=== PATIENT | male | born 1955 | race Asian ===

== ENCOUNTER 2019-03-18 08:56 | Day surgery (SDC) | payer BC ==
[2019-03-18] MEDS ORDERED: Ringers Lactate 1,000 ML IV ONE ×2 (09:37→12:14)
[2019-03-18] MEDS ORDERED: CEFOXITIN/SWI 1gm 1 GM/10 ML SYR ONE (09:41)
[2019-03-18] MEDS ORDERED: PROPOFOL 200 MG/20 ML VIAL IV ONE (10:50)
[2019-03-18] MEDS ORDERED: GLYCOPYRROLATE 0.2 MG/ML SYR ONE (10:51)
[2019-03-18] MEDS ORDERED: ROCURONIUM 50 MG/5 ML VIAL IV ONE (10:52)
[2019-03-18] MEDS ORDERED: ONDANSETRON 4 MG/2 ML VIAL ONE (10:52)
[2019-03-18] MEDS ORDERED: NEOSTIGMINE 1 MG/ML -10 ML VIAL ONE (10:52)
[2019-03-18] MEDS ORDERED: LIDOCAINE 2% MPF 5 ML VIAL ONE (10:52)
[2019-03-18] MEDS ORDERED: FENTANYL CITR 250 MCG/5 ML ONE (10:52)
[2019-03-18] MEDS ORDERED: MIDAZOLAM HCL 2 MG/2 ML INJ ONE (10:53)
--- NOTE | 2019-03-18 11:46 | P.OP ---
Preoperative diagnosis: Cholecystitis with Cholelithiasis Postoperative diagnosis: Cholecystitis with Cholelithiasis Primary procedure: Laparoscopic Cholecystectomy Anesthesia: GETA + Local Estimated blood loss: <10cc Specimen: Gallbladder Findings: Significant Scarring to maribel, anterior, posterior cystic artery Complications: None Transferred to: Recovery Room Condition: Good
[2019-03-18] MEDS ORDERED: BUPIVACA 0.25%/EPI 0.0005% MDV 50 ML VIAL ONE (12:14)
[2019-03-18] MEDS: MEPERIDINE HCL 50 MG/ML AMP ONE ×4 (12:18→12:35)
[2019-03-18] MEDS ORDERED: HYDROCODONE/APAP 5/325 MG TAB ONE (13:17)
--- NOTE | 2019-03-18 15:23 | EKG ---
Test Date: 2019-03-18 Test Time: 09:10:51 Heading Saw Operator: ROB MEASUREMENT RESULTS: Intervals: Rate: 52 MO: 166 QRSD: 90 QT: 420 QTc: 390 [place]: P: 76 MO: 166 QRS: 64 T: 66 INTERPRETIVE STATEMENTS: Sinus bradycardia Low voltage QRS Borderline ECG Compared to ECG 04/02/2009 06:19:53 Low QRS voltage now present Right-axis deviation no longer present T-wave abnormality no longer present Possible ischemia no longer present Electronically Signed On 03-18-19 15:23:11 CDT by Kavon Griffin
--- NOTE | 2019-03-18 22:13 | OP ---
Date of Procedure: 03/18/2019 Surgeon: Carroll Petersen MD, Preoperative Diagnosis: Cholecystitis with cholelithiasis. Postoperative Diagnosis: Cholecystitis with cholelithiasis. Procedure Performed: Laparoscopic cholecystectomy. Anesthesia: General endotracheal plus local with 0.25% Marcaine with epinephrine. Estimated Blood Loss: Less than 10 cc. Specimen: Gallbladder. Findings: Significant scarring to the maribel extending in the area all the way to include the gallbla dder and there was an anterior and posterior cystic artery branches. Complications: None. Disposition: Transferred to recovery room in good condition. Procedure In Detail: Informed consent was obtained. The patient was brought to the operating room, prepped and draped in the usual sterile fashion. After adequate anesthesia was achieved, the infraum bilical area was anesthetized with 0.25% Marcaine, sharply incised, and a 5-mm trocar was introduced in the abdomen without evidence of complication. Insufflation was obtained to 15 mmHg at this time. There was no injury to vital structures upon entering the abdomen upon inspection. Additional troca r site was chosen in the epigastrium, this was similarly anesthetized and sharply incised. A 5-mm tr ocar was introduced in the abdomen without evidence of complication. Additional trocar site was chos en in the right upper quadrant. This was similarly anesthetized, sharply incised. A 5-mm trocar was introduced in the abdomen without evidence of complication. Insufflation was maintained at 15 mmHg. The patient was then positioned head up right-side up position. Ratcheted grasper was used to gras p the patient's gallbladder, placed it towards the patient's right shoulder and dissection continued down the gallbladder to expose the cystic duct and cystic artery. However, the cystic artery had wha t appeared to be an anterior and posterior branch. These were completely skeletonized prior to any c lip application, and the liver was cleared, ensuring the critical view safety was obtained. The ante rior and posterior branches of the cystic artery were both individually doubly ligated on the proxima l side and singly on the distal side, as well as the cystic duct was doubly ligated on the proximal s fior and singly on the distal side. These were then ligated with Endo Osman. The gallbladder was th en removed from the hepatic fossa without evidence of complication. The hepatic fossa required minim al electrocautery to achieve hemostasis, with good hemostasis at the end of the procedure. The gallb ladder was removed with no spillage and placed in an EndoCatch bag and removed through the umbilical trocar. The abdomen was then re-insufflated at this time. The area was inspected. Proper hemostasis was achieved. The abdomen was copiously irrigated multiple times and then suctioned until completel y clear, and then the umbilical trocar was removed. The umbilical trocar site was closed using a Demarco Michele suture passer with 0 Vicryl in an interrupted fashion with good approximation of tissues . The abdomen was then completely desufflated under direct visualization without evidence of complic ation. All trocars were removed. All skin incisions copiously irrigated and closed with a 4-0 Monoc ryl in a running fashion. Dermabond placed over the top. The patient tolerated the procedure well w ithout evidence of complication and transferred to PACU in good condition. All counts were correct a t the end of the case. SHITAL/FOREIGN Voice ID: [id number] Report ID: [id number]
== END 2019-03-18 14:20 | disposition home or self-care (01) ==
LOC: OR 08:56
PROVIDERS: ATTEND Surgery
PROC: 0FT44ZZ Resection of Gallbladder, Percutaneous Endoscopic Approach (ICD-10-PCS; principal; 2019-03-18 10:00)
DX: K80.10 Calculus of gallbladder with chronic cholecystitis without obstruction (principal); D13.1 Benign neoplasm of stomach; J44.9 Chronic obstructive pulmonary disease, unspecified; I25.2 Old myocardial infarction; Z95.5 Presence of coronary angioplasty implant and graft; Z87.891 Personal history of nicotine dependence
CPT/HCPCS: 88304; 93005; J2175; J2250; J2405; J2704; J2710; J3010

== ENCOUNTER 2024-01-28 07:11 | Inpatient (IN) | payer MEDICARE ==
--- OUTSIDE RECORDS SUMMARY | 2024-01-28 07:15 | XMS REPORT | Continuity of Care Document ---
Author Name Unknown Address [address] [facility] [address] [place] [address] [facility] Address [address] [facility] [address] [place] [address] Care Team Providers Care Prison Warden Name Role Phone Bebe Rodriguez Attending Clinician Unavailable Rhonda Bedolla Attending Clinician Payers Payer Name Policy Type Policy Number Effective Date Expirati on Date Source [facility] (MEDICARE REPLACEMENT HMO) [id number] 2022 00:00:00 Problems Condition Name Condition Details Condition Category Status Onset Date Resolution Date Last Treatment Date Treating Clinician Comments Source [place] l fistula [place] fistula Problem [facility] [id number] Vitamin D deficiency Problem [facility] Mixed hyperlipid emia Mixed hyperlipid emia Problem [facility] [id number] Essential (primary) hypertensi on Problem [facility] Social History Social Habit Start Date Stop Date Quantity Comments Source History of Tobacco Use [facility] Sex Assigned At [facility] Smoking Status Start Date Stop Date Source Former Smoker 2023-12-20 00:00:00 2023-12-20 00:00:00 [facility] Medications Ordered Medication Name Filled Medication Name Start Date Stop Date Current Medication? Ordering Clinician Indication Dosage Frequency Signature (SIG) Comments Components Source Losartan Potassium 25 MG Losartan Potassium 25 MG 11-21 00:00: 00 No 1{table t} QD Losartan Potassium 25 MG Rosuvastati n Calcium 5 MG Rosuvastati n Calcium 5 MG 4-0 - 00:00: 00 No 1{table t} QD Rosuvastat in Calcium 5 MG Losartan Potassium 25 MG Losartan Potassium 25 MG 2024-0 - 00:00: 00 No 1{table t} QD Losartan Potassium 25 MG Rosuvastati n Calcium 5 MG Rosuvastati n Calcium 5 MG 4-0 - 00:00: 00 No 1{table t} QD Rosuvastat in Calcium 5 MG Losartan Potassium 25 MG Losartan Potassium 25 MG 4-0 11-21 00:00: 00 No 1{table t} QD Losartan Potassium 25 MG Rosuvastati n Calcium 5 MG Rosuvastati n Calcium 5 MG 4-0 11-21 00:00: 00 No 1{table t} QD Rosuvastat in Calcium 5 MG Losartan Potassium 25 MG Losartan Potassium 25 MG 4-0 11-21 00:00: 00 No 1{table t} QD Losartan Potassium 25 MG Rosuvastati n Calcium 5 MG Rosuvastati n Calcium 5 MG 4-0 11-21 00:00: 00 No 1{table t} QD Rosuvastat in Calcium 5 MG Losartan Potassium 25 MG Losartan Potassium 25 MG 4-0 11-21 00:00: 00 No 1{table t} QD Losartan Potassium 25 MG Rosuvastati n Calcium 5 MG Rosuvastati n Calcium 5 MG 4-0 11-21 00:00: 00 No 1{table t} QD Rosuvastat in Calcium 5 MG Vitamin D3 Vitamin D3 No Vitamin D3 Vitamin C Vitamin C No Vitamin C Vitamin B12 Vitamin B12 No Vi tamin B12 Vitamin C Vitamin C No Vitamin C Rosuvastati n Calcium 5 MG Rosuvastati n Calcium 5 MG No 1{table t} QD Rosuvastat in Calcium 5 MG Vitamin B12 Vitamin B12 No Vi tamin B12 Losartan Potassium 50 MG Losartan Potassium 50 MG No 1{table t} QD Losartan Potassium 50 MG Vitamin D3 Vitamin D3 No Vitamin D3 Vitamin C Vitamin C No Vitamin C Rosuvastati n Calcium 5 MG Rosuvastati n Calcium 5 MG No 1{table t} QD Rosuvastat in Calcium 5 MG Vitamin B12 Vitamin B12 No Vi tamin B12 Losartan Potassium 50 MG Losartan Potassium 50 MG No 1{table t} QD Losartan Potassium 50 MG Vitamin D3 Vitamin D3 No Vitamin D3 Vitamin C Vitamin C No Vitamin C Rosuvastati n Calcium 5 MG Rosuvastati n Calcium 5 MG No 1{table t} QD Rosuvastat in Calcium 5 MG Vitamin B12 Vitamin B12 No Vi tamin B12 Losartan Potassium 50 MG Losartan Potassium 50 MG No 1{table t} QD Losartan Potassium 50 MG Vitamin D3 Vitamin D3 No Vitamin D3 Vitamin D3 Vitamin D3 No Vitamin D3 Vitamin C Vitamin C No Vitamin C Vitamin B12 Vitamin B12 No Vi tamin B12 Vitamin D3 Vitamin D3 No Vitamin D3 Vitamin C Vitamin C No Vitamin C Vitamin B12 Vitamin B12 No Vi tamin B12 Vitamin D3 Vitamin D3 No Vitamin D3 Vitamin C Vitamin C No Vitamin C Vitamin B12 Vitamin B12 No Vi tamin B12 Vitamin D3 Vitamin D3 No Vitamin D3 Vitamin C Vitamin C No Vitamin C Vitamin B12 Vitamin B12 No Vi tamin B12 Immunizations Ordered Immunization Name Filled Immunization Name Date Status Comments Source Arexvy Arexvy Unknown Completed [facility] rit [facility] Prevnar 20 (PCV20) Prevnar 20 (PCV20) Unknown Completed [facility] FluAD FluAD Unknown Completed [facility] Shingrix Shingrix Unknown Completed [facility] Shingrix Shingrix Unknown Completed [facility] Boostrix (Tdap) Boostrix (Tdap) Unknown Completed [facility] Fluzone Fluzone Unknown Completed [facility] Arexvy Arexvy Unknown Completed [facility] Prevnar 20 (PCV20) Prevnar 20 (PCV20) Unknown Completed [facility] FluAD FluAD Unknown Completed [facility] Shingrix Shingrix Unknown Completed [facility] Shingrix Shingrix Unknown Completed [facility] Boostrix (Tdap) Boostrix (Tdap) Unknown Completed [facility] Fluzone Fluzone Unknown Completed [facility] Arexvy Arexvy Unknown Completed [facility] Prevnar 20 (PCV20) Prevnar 20 (PCV20) Unknown Completed [facility] FluAD FluAD Unknown Completed [facility] Shingrix Shingrix Unknown Completed [facility] Shingrix Shingrix Unknown Completed [facility] Boostrix (Tdap) Boostrix (Tdap) Unknown Completed [facility] Fluzone Fluzone Unknown Completed [facility] rit [facility] Arexvy Arexvy Unknown Completed [facility] rit [facility] Prevnar 20 (PCV20) Prevnar 20 (PCV20) Unknown Completed [facility] FluAD FluAD Unknown Completed [facility] Shingrix Shingrix Unknown Completed [facility] Shingrix Shingrix Unknown Completed [facility] Boostrix (Tdap) Boostrix (Tdap) Unknown Completed [facility] Fluzone Fluzone Unknown Completed [facility] rit [facility] Arexvy Arexvy Unknown Completed [facility] Prevnar 20 (PCV20) Prevnar 20 (PCV20) Unknown Completed [facility] FluAD FluAD Unknown Completed [facility] Shingrix Shingrix Unknown Completed [facility] Shingrix Shingrix Unknown Completed [facility] rit [facility] Boostrix (Tdap) Boostrix (Tdap) Unknown Completed [facility] Fluzone Fluzone Unknown Completed [facility] Arexvy Arexvy Unknown Completed [facility] Prevnar 20 (PCV20) Prevnar 20 (PCV20) Unknown Completed [facility] FluAD FluAD Unknown Completed [facility] Shingrix Shingrix Unknown Completed [facility] rit [facility] Shingrix Shingrix Unknown Completed [facility] rit [facility] Boostrix (Tdap) Boostrix (Tdap) Unknown Completed [facility] Fluzone Fluzone Unknown Completed [facility] Arexvy Arexvy Unknown Completed [facility] Prevnar 20 (PCV20) Prevnar 20 (PCV20) Unknown Completed [facility] FluAD FluAD Unknown Completed [facility] Shingrix Shingrix Unknown Completed [facility] Shingrix Shingrix Unknown Completed [facility] Boostrix (Tdap) Boostrix (Tdap) Unknown Completed [facility] Fluzone Fluzone Unknown Completed [facility] Arexvy Arexvy Unknown Completed [facility] Prevnar 20 (PCV20) Prevnar 20 (PCV20) Unknown Completed [facility] FluAD FluAD Unknown Completed [facility] Shingrix Shingrix Unknown Completed [facility] Shingrix Shingrix Unknown Completed [facility] Boostrix (Tdap) Boostrix (Tdap) Unknown Completed [facility] Fluzone Fluzone Unknown Completed [facility] Vital Signs Vital Name Observation Time Observation Value Comments S ource temperature 2023-12-20 15:20:00 97.5 [degF] Com [facility] bmi 2023-12-20 15:20:00 23.23 kg/m2 Comm on [facility] oximetry 2023-12-20 15:20:00 96 % Commo n [facility] respiratory rate 2023-12-20 15:20:00 16 /min [facility] blood pressure systolic 2023-12-20 15:20:00 140 mm[Hg] [facility] blood pressure diastolic 2023-12-20 15:20:00 78 mm[Hg] [facility] height 2023-12-20 15:20:00 62.0 [in_i] Comm on [facility] weight 2023-12-20 15:20:00 127 [lb_av] Comm on [facility] height 2023-12-20 15:20:00 62.0 [in_i] Comm on [facility] weight 2023-12-20 15:20:00 127 [lb_av] Comm on [facility] temperature 2023-12-20 15:20:00 97.5 [degF] Com mon [facility] bmi 2023-12-20 15:20:00 23.23 kg/m2 Comm on [facility] oximetry 2023-12-20 15:20:00 96 % Commo n [facility] respiratory rate 2023-12-20 15:20:00 16 /min [facility] blood pressure systolic 2023-12-20 15:20:00 140 mm[Hg] [facility] blood pressure diastolic 2023-12-20 15:20:00 78 mm[Hg] [facility] height 2023-11-21 13:20:00 62.0 [in_i] Comm on [facility] weight 2023-11-21 13:20:00 127.8 [lb_av] Co mmon [facility] temperature 2023-11-21 13:20:00 97.6 [degF] Com mon [facility] bmi 2023-11-21 13:20:00 23.37 kg/m2 Comm on [facility] oximetry 2023-11-21 13:20:00 97 % Commo [facility] respiratory rate 2023-11-21 13:20:00 16 /min [facility] blood pressure systolic 2023-11-21 13:20:00 146 mm[Hg] [facility] blood pressure diastolic 2023-11-21 13:20:00 78 mm[Hg] [facility] height 2023-10-31 15:20:00 62.0 [in_i] Comm on [facility] weight 2023-10-31 15:20:00 125.4 [lb_av] Co mmon [facility] temperature 2023-10-31 15:20:00 97.5 [degF] Com mon [facility] bmi 2023-10-31 15:20:00 22.93 kg/m2 Comm on [facility] oximetry 2023-10-31 15:20:00 98 % Commo n [facility] respiratory rate 2023-10-31 15:20:00 16 /min [facility] blood pressure systolic 2023-10-31 15:20:00 138 mm[Hg] [facility] blood pressure diastolic 2023-10-31 15:20:00 60 mm[Hg] [facility] height 2023-10-31 15:20:00 62.0 [in_i] Comm on [facility] weight 2023-10-31 15:20:00 125.4 [lb_av] Co mmon [facility] temperature 2023-10-31 15:20:00 97.5 [degF] Com [facility] bmi 2023-10-31 15:20:00 22.93 kg/m2 Comm on [facility] oximetry 2023-10-31 15:20:00 98 % Commo n [facility] respiratory rate 2023-10-31 15:20:00 16 /min [facility] blood pressure systolic 2023-10-31 15:20:00 138 mm[Hg] [facility] blood pressure diastolic 2023-10-31 15:20:00 60 mm[Hg] [facility] Encounters Start Date/Time End Date/Time Encounter Type Admission Type Attending [facility] Care Facility Care Department Encounter ID Source 2023-12-18 10:39:01 Outpatient Bebe Rodriguez STLMLC ST[facility] [id number] [facility] 2023-11-20 13:15:00 Outpatient Bebe Rodriguez STLML[facility] [id number] [facility] 2023-10-31 14:42:01 Outpatient Bebe Rodriguez STLC STLMLC [id number] [facility] 2024-01-25 00:00:00 2024-01-25 00:00:00 (TEL) STLMLC ST[facility]C [id number] [facility] 2023-12-20 00:00:00 2023-12-20 00:00:00 OFFICE VISIT ESTAB PT LEVEL 4 STLMLC STLMLC [id number] [facility] 2023-12-20 00:00:00 2023-12-20 00:00:00 INIT ANNUAL [facility]LLNESS VISIT STLMLC STLMLC [id number] [facility] 2023-11-23 00:00:00 2023-11-23 00:00:00 (TEL) STLMLC STLMLC [id number] [facility] 2023-11-21 00:00:00 2023-11-21 00:00:00 OFFICE VISIT ESTAB PT LEVEL 4 [facility]LMLC STL[facility]C [id number] [facility] 2023-11-16 00:00:00 2023-11-16 00:00:00 (TEL) STLMLC STLMLC [id number] [facility] 2023-10-31 00:00:00 2023-10-31 00:00:00 OFFICE VISIT NEW PT LEVEL 4 [facility]LMLC STLMLC [id number] [facility] 2023-10-31 00:00:00 2023-10-31 00:00:00 WELCOME TO MEDICARE PREV PHY EXAM STLMLC STLMLC [id number] [facility] 2023-10-27 19:30:00 2023-10-27 20:30:00 D2Me Rhonda Bedolla [id number] [facility] 2023-03-18 00:00:00 2023-03-18 00:00:00 Outpatient [facility] [id number] [facility] 2023-03-18 00:00:00 2023-03-18 00:00:00 Outpatient [facility] [id number] [facility] 2022-08-23 00:00:00 2022-08-23 00:00:00 Outpatient [facility] [id number] [facility] Results Test Description Test Time Test Comments Results Result Co mments Source PSA W/REFLEX TO FREE [id number] 00:00:00* Test Item Value Reference Range Interpretation Comme [facility] PROSTATE SPECIFIC AG (test code = 82750-8) 0.66 NG/ML See_Comment [Automated [employer] vi[employer]t] The system which generated this result transmitted reference range: <=4.00 NG/ML. The reference range was not used to interpret this result as normal/abnormal. HEMOGLOBIN [id number] 00:00:00* Test Item Value Reference Range Interpretation Comme [facility] HEMOGLOBIN A1c (test code = 4548-4) 5.8 % See_Comment H [Automated [employer]] The system which generated this result transmitted reference range: 4.2-5.6 %. The reference range was not used to interpret this result as normal/abnormal. VITAMIN [id number] 00:00:00* Test Item Value Reference Range Interpretation Comme [facility] VITAMIN B-12 (test code = 2132-9) 1312 PG/ML See_Comment H [Automated [employer]] The system which generated this result transmitted reference range: 200-950 PG/ML. The reference range was not used to interpret this result as normal/abnormal. HEPATITIS C [id number] 00:00:00* Test Item Value Reference Range Interpretation Comme [facility] HEPATITIS C ANTIBODY (test c ode = 48450-0) NON-REACTIVE NON-REACTIVE VITAMIN D, 25 [id number] 00:00:00* Test Item Value Reference Range Interpretation Comme [facility] VITAMIN D, 25 OH (test code = 1988-3) 40 NG/ML SEE BELOW NG/ML LIPID PANEL WITH REFLEX DIRECT [id number] 00:00:00* Test Item Value Reference Range Interpretation Comme [facility] CALC LDL CHOL (test code = 08801-3) 174 MG/DL See_Comment H [Automated messa ge] The system which generated this result transmitted reference range: <100 MG/DL. The reference range was not used to interpret this result as normal/abnormal. CHOLESTEROL (test code = 2093-3) 266 MG/DL See_Comment H [Automated messa ge] The system which generated this result transmitted reference range: <200 MG/DL. The reference range was not used to interpret this result as normal/abnormal. HDL CHOLESTEROL (test code = 2085-9) 70 MG/DL See_Comment [Automated messa ge] The system which generated this result transmitted reference range: >39 MG/DL. The reference range was not used to interpret this result as normal/abnormal. RISK RATIO LDL/HDL (test code = 70710-2) 2.49 RATIO See_Comment [Automated message] The system which generated this result transmitted reference range: <3.55 RATIO. The reference range was not used to interpret this result as normal/abnormal. TRIGLYCERIDES (test code = 2571-8) 100 MG/DL See_Comment [Automated messa ge] The system which generated this result transmitted reference range: <150 MG/DL. The reference range was not used to interpret this result as normal/abnormal. COMPREHENSIVE METABOLIC [id number] 00:00:00* Test Item Value Reference Range Interpretation [facility] ALBUM[facility] (test code = 1751-7) 5.0 G/DL See_Comment [Automated messa ge] The system which generated this result transmitted reference range: 3.5-5.2 G/DL. The reference range was not used to interpret this result as normal/abnormal. ALKALINE PHOSPHATASE (test code = 6768-6) 85 U/L See_Comment [Automated message] The system which generated this result transmitted reference range: 40-125 U/L. The reference range was not used to interpret this result as normal/abnormal. BILIRUBIN, TOTAL (test code = 1975-2) 0.6 MG/DL See_Comment [Automated message] The system which generated this result transmitted reference range: <=1.2 MG/DL. The reference range was not used to interpret this result as normal/abnormal. BUN (test code = 3094-0) 13 MG/DL See_Comment [Automated messa ge] The system which generated this result transmitted reference range: 8-23 MG/DL. The reference range was not used to interpret this result as normal/abnormal. CALCIUM (test code = 54353-4) 10.5 MG/DL See_Comment [Automated messa ge] The system which generated this result transmitted reference range: 8.5-10.5 MG/DL. The reference range was not used to interpret this result as normal/abnormal. CALC A/G RATIO (test code = 1759-0) 1.7 RATIO See_Comment [Automated messa ge] The system which generated this result transmitted reference range: 1.0-2.6 RATIO. The reference range was not used to interpret this result as normal/abnormal. CALC BUN/CREAT (test code = 3097-3) 16 RATIO See_Comment [Automated messa ge] The system which generated this result transmitted reference range: 6-28 RATIO. The reference range was not used to interpret this result as normal/abnormal. CALC GLOBULIN (test code = 64414-7) 3.0 G/DL See_Comment [Automated messa ge] The system which generated this result transmitted reference range: 1.9-3.7 G/DL. The reference range was not used to interpret this result as normal/abnormal. CARBON DIOXIDE (test code = 1963-8) 26 MEQ/L See_Comment [Automated messa ge] The system which generated this result transmitted reference range: 19-31 MEQ/L. The reference range was not used to interpret this result as normal/abnormal. CHLORIDE (test code = 2075-0) 99 MEQ/L See_Comment [Automated messa ge] The system which generated this result transmitted reference range: 95-107 MEQ/L. The reference range was not used to interpret this result as normal/abnormal. CREATININE (test code = 2160-0) 0.82 MG/DL See_Comment [Automated messa ge] The system which generated this result transmitted reference range: 0.80-1.40 MG/DL. The reference range was not used to interpret this result as normal/abnormal. eGFR (2020 CKD-EPI) (test code = 01600-6) 97 ML/MIN/1.73 See_Comment [Automated messa ge] The system which generated this result transmitted reference range: >60 ML/MIN/1.73. The reference range was not used to interpret this result as normal/abnormal. GLUCOSE (test code = 1558-6) 118 MG/DL See_Comment H [Automated messa ge] The system which generated this result transmitted reference range: 70-99 MG/DL. The reference range was not used to interpret this result as normal/abnormal. POTASSIUM (test code = 2823-3) 5.7 MEQ/L See_Comment H [Automated messa ge] The system which generated this result transmitted reference range: 3.5-5.4 MEQ/L. The reference range was not used to interpret this result as normal/abnormal. PROTEIN, TOTAL (test code = 2885-2) 8.0 G/DL See_Comment [Automated messa ge] The system which generated this result transmitted reference range: 6.1-8.3 G/DL. The reference range was not used to interpret this result as normal/abnormal. AST (test code = 1920-8) 25 U/L See_Comment [Automated messa ge] The system which generated this result transmitted reference range: 9-50 U/L. The reference range was not used to interpret this result as normal/abnormal. ALT (test code = 1742-6) 28 U/L See_Comment [Automated messa ge] The system which generated this result transmitted reference range: 5-50 U/L. The reference range was not used to interpret this result as normal/abnormal. SODIUM (test code = 2951-2) 140 MEQ/L See_Comment [Automated messa ge] The system which generated this result transmitted reference range: 133-146 MEQ/L. The reference range was not used to interpret this result as normal/abnormal.
[2024-01-28] MEDS ORDERED: ONDANSETRON 4 MG/2 ML VIAL ONE (07:32)
[2024-01-28] MEDS ORDERED: MORPHINE 4 MG/ML SYR ONE (07:32)
[2024-01-28 07:52] LABS: Absolute Basophils 0.1 K/uL (0-0.5); Absolute Lymphocytes (CBC) 1.1 K/uL (0.7-4.9); Absolute Monocytes 0.9 K/uL (0.1-1.3); Absolute Neutrophil 7.2 K/uL (1.8-8.0); Basophils % 0.5 % (0-1.3); Eosinophils % 0.5 % (0-4.4); Hematocrit 40.6 % (39.6-49.0); Hemoglobin 13.9 g/dL (13.6-17.9); Lymphocytes % 12.2 % (15.3-44.8); MCH 31.8 pg (27.0-35.0); MCHC 34.4 g/dL (32.0-36.0); MCV 92.5 fL (80-100); MPV 7.5 fL (7.6-11.3); Monocytes % 9.4 % (3.3-12.3); Neutrophils % 77.4 % (41.7-73.7); Platelets 260 thou/uL (152-406); RBC Red Blood Cell Count 4.39 M/uL (4.33-5.43); Red Cell Distribution Width 14.1 % (12.1-15.2)
[2024-01-28 07:58] LABS: PT Prothrombin Time 11.6 SECONDS (9.5-12.5); Protime INR 1.06
--- NOTE | 2024-01-28 07:59 | RAD REPORT ---
EXAM DESCRIPTION: Narda Single View01/28/2024 7:54 am CLINICAL HISTORY: CHEST PAIN COMPARISON: Chest Pa And Lat (2 Views) dated 12/26/2018; Chest Pa And Lat (2 Views) dated 12/27/2017; CHEST PA AND LAT 2 VIEW dated 04/18/2015; CHEST PA AND LAT 2 VIEW dated 05/03/2014 TECHNIQUE: Portable AP view of the chest. FINDINGS: The lungs show no focal consolidation. Bilateral central interstitial prominence is noted. No pneumothorax or effusion. The cardiomediastinal contours are unremarkable. IMPRESSION: Bilateral central interstitial prominence may relate to central congestion or early zev a.
[2024-01-28 08:21] LABS: Albumin 3.5 g/dL (3.4-5.0); Albumin/Globulin Ratio 0.9 (1.1-1.8); Anion Gap 9.7 mEq/L (5.0-15.0); Bilirubin Direct 0.3 mg/dL (0-0.2); Bilirubin Indirect, Calculated 0.4 mg/dL (0.2-0.8); Bilirubin Total 0.7 mg/dL (0.2-1.0); Globulin 3.8 g/dL (2.3-3.5); Magnesium 1.9 mg/dL (1.6-2.4); Potassium 3.7 mEq/L (3.5-5.1); Protein, Total 7.3 g/dL (6.4-8.2)
[2024-01-28 08:24] LABS: Troponin High Sensitivity 1185.6 pg/mL (<58.9)
[2024-01-28] MEDS ORDERED: HEPARIN/D5W 25,000 UNIT/500 ML BAG IV ONE (08:38)
--- NOTE | 2024-01-28 09:42 | EDPHYS ---
Physician Documentation [facility] Name: Grupo Junior Age: 68 yrs Sex: Male : 1955 Arrival Date: 01/28/2024 Time: 07:11 Bed 13 Private MD: ED Physician Radha Alonso HPI: 01/27 07:21 This 68 yrs old Male presents to ER via Unassigned with complaints of Chest Pain, cp3 Shoulder Pain, Shortness Of Breath. 07:21 The patient is a 68-year-old male who presents to the ED with substernal chest pressure cp3 with radiation to the left arm and shoulders that started at 5 PM yesterday. Patient denies shortness of breath, nausea, vomiting, diaphoresis, syncope. Patient has a history of coronary disease with a stent placement in 2007. Historical: - Allergies: 07:28 No Known Allergies; hb - Home Meds: 07:39 None [Active]; hb - PMHx: 07:28 OK; hb - PSHx: 07:28 Cardiac Stents; hb - Immunization history:: Adult Immunizations up to date. - Social history:: Smoking status: Patient denies any tobacco usage or history of. ROS: 07:21 Constitutional: Negative for fever, chills, and weight loss, Respiratory: Negative for cp3 shortness of breath, cough, wheezing, and pleuritic chest pain, Abdomen/GI: Negative for abdominal pain, nausea, vomiting, diarrhea, and constipation, Back: Negative for injury and pain, MS/Extremity: Negative for injury and deformity, Skin: Negative for injury, rash, and discoloration, Neuro: Negative for headache, weakness, numbness, tingling, and seizure, Psych: Negative for depression, anxiety, suicide ideation, homicidal ideation, and hallucinations, Allergy/Immunology: Negative for hives, rash, and allergies, Endocrine: Negative for neck swelling, polydipsia, polyuria, polyphagia, and marked weight changes, Hematologic/Lymphatic: Negative for swollen nodes, abnormal bleeding, and unusual bruising, 07:21 Cardiovascular: Positive for chest pain, Exam: 07:21 Constitutional: This is a well developed, well nourished patient who is awake, alert, cp3 and in no acute distress. Head/Face: Normocephalic, atraumatic. Eyes: Pupils equal round and reactive to light, extra-ocular motions intact. Lids and lashes normal. Conjunctiva and sclera are non-icteric and not injected. Cornea within normal limits. Periorbital areas with no swelling, redness, or edema. ENT: Nares patent. No nasal discharge, no septal abnormalities noted. Tympanic membranes are normal and external auditory canals are clear. Oropharynx with no redness, swelling, or masses, exudates, or evidence of obstruction, uvula midline. Mucous membranes moist. Neck: Trachea midline, no thyromegaly or masses palpated, and no cervical lymphadenopathy. Supple, full range of motion without nuchal rigidity, or vertebral point tenderness. No Meningismus. Chest/axilla: Normal chest wall appearance and motion. Nontender with no deformity. No lesions are appreciated. Cardiovascular: Regular rate and rhythm with a normal S1 and S2. No gallops, murmurs, or rubs. Normal PMI, no JVD. No pulse deficits. Respiratory: Lungs have equal breath sounds bilaterally, clear to auscultation and percussion. No rales, rhonchi or wheezes noted. No increased work of breathing, no retractions or nasal flaring. Abdomen/GI: Soft, non-tender, with normal bowel sounds. No distension or tympany. No guarding or rebound. No evidence of tenderness throughout. Back: No spinal tenderness. No costovertebral tenderness. Full range of motion. Skin: Warm, dry with normal turgor. Normal color with no rashes, no lesions, and no evidence of cellulitis. MS/ Extremity: Pulses equal, no cyanosis. Neurovascular intact. Full, normal range of motion. Neuro: Awake and alert, GCS 15, oriented to person, place, time, and situation. Cranial nerves II-XII grossly intact. Motor strength 5/5 in all extremities. Sensory grossly intact. Cerebellar exam normal. Normal gait. Psych: Awake, alert, with orientation to person, place and time. Behavior, mood, and affect are within normal limits. Vital Signs: 07:13 BP 125 / 72; Pulse 64; Resp 17; Temp 98.1(TE); Pulse Ox 100% on R/A; Weight 57.61 kg hb (R); Height 5 ft. 2 in. ; Pain 9/10; 08:05 BP 104 / 60; Pulse 69; Resp 21; Pulse Ox 97% on R/A; Pain 8/10; hb 08:21 BP 104 / 60; Pulse 68; Resp 15; Temp 99; hb 09:25 BP 103 / 61; Pulse 61; Resp 15; Pulse Ox 96% on R/A; hb 10:00 BP 102 / 60; Pulse 56; Resp 17; Pulse Ox 100% on R/A; hb 10:30 BP 95 / 62; Pulse 59; Resp 17; Pulse Ox 97% on R/A; hb 11:00 BP 103 / 67; Pulse 66; Resp 16; Pulse Ox 96% on R/A; hb 12:00 BP 98 / 66; Pulse 71; Resp 16; Pulse Ox 95% on R/A; hb 13:00 BP 106 / 64; Pulse 62; Resp 17; Pulse Ox 97% on R/A; me1 13:45 BP 110 / 67; Pulse 67; Resp 17; Pulse Ox 98% on R/A; me1 15:00 BP 111 / 70; Pulse 70; Resp 20; Pulse Ox 95% on R/A; me1 16:00 BP 113 / 69; Pulse 77; Resp 18; Pulse Ox 98% on R/A; me1 17:00 BP 116 / 63; Pulse 74; Resp 22; Pulse Ox 96% on R/A; Pain 2/10; me1 18:00 BP 98 / 67; Pulse 75; Resp 18; Pulse Ox 97% on R/A; me1 19:00 BP 95 / 63; Pulse 81; Resp 18; Pulse Ox 95% on R/A; me1 19:45 BP 95 / 74; Pulse 71; Resp 16; Pulse Ox 96% on R/A; me1 20:15 BP 98 / 57; Pulse 80; Resp 18; Pulse Ox 94% on R/A; me1 07:13 Body Mass Index 23.23 (57.61 kg, 157.48 cm) hb 07:13 Pain Scale: Adult hb 08:05 Pain Scale: Adult hb 17:00 Pain Scale: Adult me1 Procedures: 07:32 EKG interpreted by me at 7:14 AM: Rate 62, QT 384, no evidence of acute OK, normal cp3 sinus rhythm. MDM: 07:16 Patient medically screened. cp3 07:21 Differential diagnosis: coronary artery disease chest wall pain, congestive heart cp3 failure gastroesophageal reflux disease (GERD), pericarditis, pleurisy, unstable angina. 09:41 HEART Score: History: Highly Suspicious (2), ECG: Normal (0), Age: > or = 65 years (2), cp3 Risk Factors: > or = 3 Risk factors for atherosclerotic disease (2), Troponin: > or = 3 x Normal Limit (2), Total Score = 9. The patient was given aspirin in the Emergency Department. Data reviewed: vital signs, nurses notes. Consideration of Admission/Observation Patient was admitted/placed on observation. Management of patient was discussed with the following: Hospitalist: DR PENA. Stave Machine Tender: DR GAYTAN WILL ACCEPT CONSULT. HEPARIN DRIP/BOLUS. I considered the following discharge prescriptions or medication management in the emergency department Medications were administered in the Emergency Department. See MAR. Independent interpretation of the following test(s) in the Emergency Department EKG: See my EKG interpretation above. Historians other than the Patient:. Response to treatment: the patient's symptoms have markedly improved after treatment. 01/27 07:25 Order name: Basic Metabolic Panel; Complete Time: 08:26 cp3 01/27 07:25 Order name: CBC with Diff; Complete Time: 07:59 cp3 01/27 07:25 Order name: LFT's; Complete Time: 08:26 cp3 01/27 07:25 Order name: Magnesium; Complete Time: 08:26 cp3 01/27 07:25 Order name: NT PRO-BNP; Complete Time: 08:26 cp3 01/27 07:25 Order name: PT-INR; Complete Time: 07:59 cp3 01/27 07:25 Order name: Troponin HS; Complete Time: 08:26 cp3 01/27 07:25 Order name: Lipase; Complete Time: 08:26 cp3 01/27 15:44 Order name: Ptt, Activated; Complete Time: 16:32 hb 01/27 17:29 Order name: CBC with Automated Diff EDMS 01/27 17:29 Order name: CBC with Automated Diff EDMS 01/27 17:29 Order name: Comprehensive Metabolic Panel EDMS 01/27 17:29 Order name: Comprehensive Metabolic Panel EDMS 01/27 17:29 Order name: Magnesium EDMS 01/27 17:29 Order name: Magnesium EDMS 01/27 17:29 Order name: Protime (+INR) EDAK 01/27 17:29 Order name: Protime (+INR) EDAK 01/27 17:29 Order name: Troponin High Sensitivity EDAK 01/27 17:29 Order name: Troponin High Sensitivity EDAK 01/27 17:29 Order name: PTT, Activated Partial Thromb EDAK 01/27 18:47 Order name: Urinalysis w/ reflexes EDAK 01/27 19:09 Order name: Creatine Phosphokinase EDAK 01/27 19:09 Order name: Lactate w/ 2H reflex if indic. EDAK 01/27 07:25 Order name: XRAY Chest (1 view); Complete Time: 08:23 cp3 01/27 17:04 Order name: CL LEFT HEART WITHOUT LV EDAK 01/27 07:25 Order name: EKG; Complete Time: 07:25 cp3 01/27 17:29 Order name: CONS Physician Consult EDAK 01/27 07:25 Order name: Cardiac monitoring; Complete Time: 07:31 cp3 01/27 07:25 Order name: EKG - Nurse/Tech; Complete Time: 07:31 cp3 01/27 07:25 Order name: IV Saline Lock; Complete Time: 07:41 cp3 01/27 07:25 Order name: Labs collected and sent; Complete Time: 07:41 cp3 01/27 07:25 Order name: O2 Per Protocol; Complete Time: 07:31 cp3 01/27 07:25 Order name: O2 Sat Monitoring; Complete Time: 07:31 cp3 Administered Medications: 07:36 Drug: morphine IVP or IV 4 mg IVP once over 4 mins Route: IVP; Infused Over: 4 mins; hb Site: left antecubital; 08:02 Follow up: Response: No adverse reaction; Pain is decreased hb 07:36 Drug: Ondansetron IVP 4 mg IVP once; over 2 minutes Route: IVP; Site: left antecubital; hb 07:46 Follow up: Response: No adverse reaction hb 08:26 CANCELLED (Physician Discretion): Heparin (OK-Bolus No thrombolytic) - cp3 units/kg IVP once; Max 5000 units 08:52 Drug: Heparin (OK Drip) 12 units/kg/[place] - ([place] [address] units, D5W IV 500 ml) IV at hb calculated rate Per protocol; Max initial rate 1000 units/hr {Co-Signature: shirley (Etta Weiss RN).} Route: IV; Rate: calculated rate; Site: left antecubital; 09:39 CANCELLED (Duplicate Order): [id number] mg PO once cp3 09:44 Drug: Heparin (OK-Bolus No thrombolytic) - HEParin IVP 60 units/kg IVP once; Max 5000 hb units {Co-Signature: shirley (Etta Weiss RN).} Route: IVP; Site: left antecubital; 10:15 Follow up: Response: No adverse reaction hb Disposition: 09:41 Critical Care:. cp3 Disposition Summary: 01/28/24 09:41 Hospitalization Ordered Notes: Hospitalization Status: Inpatient Admission cp3 Provider: Waqar Pena cp3 Condition: Stable cp3 Problem: new cp3 Symptoms: have improved cp3 Bed/Room Type: Standard cp3 Location: Intensive Care Unit(01/28/24 19:53) cg Room Assignment: 6-(01/28/24 19:53) cg Diagnosis - NSTEMI cp3 - ACUTE CHEST PAIN cp3 - HISTORY OF CORONARY ARTERY DISEASE cp3 Forms: - Medication Reconciliation Form cp3 - SBAR form cp3 - Leadership Thank You Letter cp3 Critical care time excluding procedures: 09:41 Critical care time: Bedside Care: 35 minutes, Consultation: 60 minutes. Total time: 95 cp3 minutes Signatures: Dispatcher [employer] Radha Singh MD MD cp3 Etta Weiss RN RN aa5 Tasia Hensley RN RN Cindy Ortiz RN RN Etta Weiss RN aa5 Corrections: (The following items were deleted from the chart) 08:26 08:25 Heparin (OK-Bolus No thrombolytic) - HEParin IVP 60 units/kg IVP once; Max 5000 cp3 units ordered. cp3 09:39 09:39 Aspirin PO 325 mg PO once ordered. cp3 cp3 12:12 09:41 Telemetry/MedSurg (Inpatient) cp3 aa5 12:12 09:41 cp3 aa5 19:53 12:12 [facility] ER HOLD aa5 cg 19:53 12:12 ERHOLD- aa5 cg
--- NOTE | 2024-01-28 09:42 | ER ---
Nurse's Notes [facility] Name: Grupo Junior Age: 68 yrs Sex: Male : 1955 Arrival Date: 01/28/2024 Time: 07:11 Bed 13 Private MD: Diagnosis: NSTEMI;ACUTE CHEST PAIN;HISTORY OF CORONARY ARTERY DISEASE Presentation: 01/27 07:12 Chief complaint: Substernal chest pain that radiates to left arm and left upper back x hb 2 says. Hx of UT + stent placement. Coronavirus screen: At this time, the client does not indicate any symptoms associated with coronavirus-19. Ebola Screen: No symptoms or risks identified at this time. Initial Sepsis Screen: Does the patient meet any 2 criteria? No. Patient's initial sepsis screen is negative. Does the patient have a suspected source of infection? No. Patient's initial sepsis screen is negative. Risk Assessment: Do you want to hurt yourself or someone else? Patient reports no desire to harm self or others. Onset of symptoms was January 27, 2024 at 17:00. 07:12 Method Of Arrival: Ambulatory 07:12 Acuity: DANIEL 2 hb Triage Assessment: 07:16 General: Appears in no apparent distress. uncomfortable, Behavior is calm, cooperative. hb Pain: Pain currently is 9 out of 10 on a pain scale. EENT: No signs and/or symptoms were reported regarding the EENT system. Neuro: Level of Consciousness is awake, alert, obeys commands, Oriented to person, place, time, situation. Cardiovascular: Reports chest pain, Patient's skin is warm and dry. Rhythm is regular. Respiratory: Respiratory effort is even, unlabored, Respiratory pattern is regular, symmetrical. GI: No signs and/or symptoms were reported involving the gastrointestinal system. : No signs and/or symptoms were reported regarding the genitourinary system. Derm: Skin is pink, warm \T\ dry. Musculoskeletal: No signs and/or symptoms reported regarding the musculoskeletal system. Historical: - Allergies: 07:28 No Known Allergies; hb - Home Meds: 07:39 None [Active]; hb - PMHx: 07:28 UT; hb - PSHx: 07:28 Cardiac Stents; hb - Immunization history:: Adult Immunizations up to date. - Social history:: Smoking status: Patient denies any tobacco usage or history of. Screenin:16 [facility] ED Fall Risk Assessment (Adult) History of falling in the last 3 months, hb including since admission No falls in past 3 months (0 pts) Confusion or Disorientation No (0 pts) Intoxicated or Sedated No (0 pts) Impaired Gait No (0 pts) Mobility Assist Device Used No (0 pt) Altered Elimination No (0 pt) Score/Fall Risk Level 0 - 2 = Low Risk Oriented to surroundings, Maintained a safe environment, Educated pt \T\ family on fall prevention, incl call for assistance when getting out of bed. Abuse screen: Denies threats or abuse. Denies injuries from another. Nutritional screening: No deficits noted. Tuberculosis screening: No symptoms or risk factors identified. Assessment: 07:16 General: See triage assessment . hb 08:08 Reassessment: Patient appears in no apparent distress at this time. No changes from previously documented assessment. Patient and/or family updated on plan of care and expected duration. Pain level reassessed. Patient is alert, oriented x 3, equal unlabored respirations, skin warm/dry/pink. 08:09 Pain: Pain currently is 8 out of 10 on a pain scale. hb 09:25 Reassessment: Patient appears in no apparent distress at this time. Patient and/or hb family updated on plan of care and expected duration. Pain level reassessed. Patient is alert, oriented x 3, equal unlabored respirations, skin warm/dry/pink. 10:15 Reassessment: Patient appears in no apparent distress at this time. Patient and/or hb family updated on plan of care and expected duration. Pain level reassessed. Patient is alert, oriented x 3, equal unlabored respirations, skin warm/dry/pink. 11:14 Reassessment: Patient appears in no apparent distress at this time. Patient and/or hb family updated on plan of care and expected duration. Pain level reassessed. Patient is alert, oriented x 3, equal unlabored respirations, skin warm/dry/pink. 12:00 Reassessment: Patient appears in no apparent distress at this time. Patient and/or hb family updated on plan of care and expected duration. Pain level reassessed. Patient is alert, oriented x 3, equal unlabored respirations, skin warm/dry/pink. 13:00 Reassessment: Patient appears in no apparent distress at this time. Patient and/or me1 family updated on plan of care and expected duration. Pain level reassessed. Patient is alert, oriented x 3, equal unlabored respirations, skin warm/dry/pink. 14:00 Reassessment: Patient appears in no apparent distress at this time. Patient and/or me1 family updated on plan of care and expected duration. Pain level reassessed. Patient is alert, oriented x 3, equal unlabored respirations, skin warm/dry/pink. 15:00 Reassessment: Patient appears in no apparent distress at this time. Patient and/or me1 family updated on plan of care and expected duration. Pain level reassessed. Patient is alert, oriented x 3, equal unlabored respirations, skin warm/dry/pink. 16:00 Reassessment: Patient appears in no apparent distress at this time. Patient and/or me1 family updated on plan of care and expected duration. Pain level reassessed. Patient is alert, oriented x 3, equal unlabored respirations, skin warm/dry/pink. 17:00 Reassessment: Patient appears in no apparent distress at this time. No changes from me1 previously documented assessment. Patient is alert, oriented x 3, equal unlabored respirations, skin warm/dry/pink. 18:00 Reassessment: Patient appears in no apparent distress at this time. Patient and/or me1 family updated on plan of care and expected duration. Pain level reassessed. Patient is alert, oriented x 3, equal unlabored respirations, skin warm/dry/pink. Patient denies pain at this time. 19:00 Reassessment: Patient appears in no apparent distress at this time. Patient and/or me1 family updated on plan of care and expected duration. Pain level reassessed. Patient is alert, oriented x 3, equal unlabored respirations, skin warm/dry/pink. Patient denies pain at this time. 20:00 Reassessment: Patient appears in no apparent distress at this time. No changes from me1 previously documented assessment. Patient is alert, oriented x 3, equal unlabored respirations, skin warm/dry/pink. Patient denies pain at this time. Vital Signs: 07:13 BP 125 / 72; Pulse 64; Resp 17; Temp 98.1(TE); Pulse Ox 100% on R/A; Weight 57.61 kg hb (R); Height 5 ft. 2 in. ; Pain 9/10; 08:05 BP 104 / 60; Pulse 69; Resp 21; Pulse Ox 97% on R/A; Pain 8/10; hb 08:21 BP 104 / 60; Pulse 68; Resp 15; Temp 99; hb 09:25 BP 103 / 61; Pulse 61; Resp 15; Pulse Ox 96% on R/A; hb 10:00 BP 102 / 60; Pulse 56; Resp 17; Pulse Ox 100% on R/A; hb 10:30 BP 95 / 62; Pulse 59; Resp 17; Pulse Ox 97% on R/A; hb 11:00 BP 103 / 67; Pulse 66; Resp 16; Pulse Ox 96% on R/A; hb 12:00 BP 98 / 66; Pulse 71; Resp 16; Pulse Ox 95% on R/A; hb 13:00 BP 106 / 64; Pulse 62; Resp 17; Pulse Ox 97% on R/A; me1 13:45 BP 110 / 67; Pulse 67; Resp 17; Pulse Ox 98% on R/A; me1 15:00 BP 111 / 70; Pulse 70; Resp 20; Pulse Ox 95% on R/A; me1 16:00 BP 113 / 69; Pulse 77; Resp 18; Pulse Ox 98% on R/A; me1 17:00 BP 116 / 63; Pulse 74; Resp 22; Pulse Ox 96% on R/A; Pain 2/10; me1 18:00 BP 98 / 67; Pulse 75; Resp 18; Pulse Ox 97% on R/A; me1 19:00 BP 95 / 63; Pulse 81; Resp 18; Pulse Ox 95% on R/A; me1 19:45 BP 95 / 74; Pulse 71; Resp 16; Pulse Ox 96% on R/A; me1 20:15 BP 98 / 57; Pulse 80; Resp 18; Pulse Ox 94% on R/A; me1 07:13 Body Mass Index 23.23 (57.61 kg, 157.48 cm) hb 07:13 Pain Scale: Adult hb 08:05 Pain Scale: Adult hb 17:00 Pain Scale: Adult me1 ED Course: 07:12 Patient arrived in ED. mg5 07:15 Arm band placed on right wrist. hb 07:16 Radha Alonso MD is Attending Physician. cp3 07:25 EKG done, by ED staff, reviewed by Radha Alonso MD. hb 07:25 Patient maintains SpO2 saturation greater than 95% on room air. hb 07:25 Thermoregulation: warm blanket given to patient. hb 07:25 Patient has correct armband on for positive identification. Placed in gown. Bed in low hb position. Call light in reach. Provided Education on: tests, result times. Client placed on continuous cardiac and pulse oximetry monitoring. NIBP monitoring applied. youth nutritional monitor on. Pulse ox on. NIBP on. 07:28 Cindy Ortiz, RN is Primary Nurse. hb 07:31 Triage completed. hb 07:41 Inserted saline lock: 22 gauge in left antecubital area, using aseptic technique. Blood ds4 collected. 07:41 Initial lab(s) drawn, by ED staff, sent to lab. hb 07:56 XRAY Chest (1 view) In Process Unspecified. EDMS 08:30 Cardiology paged. sp 08:57 paged Cardiology. sp 09:41 Waqar Pena MD is Hospitalizing Provider. cp3 11:17 No provider procedures requiring assistance completed. hb 12:15 Report given to Zonia MAYS. hb 15:54 Ptt, Activated Sent. me1 20:34 Patient admitted, IV remains in place. me1 Administered Medications: 07:36 Drug: morphine IVP or IV 4 mg IVP once over 4 mins Route: IVP; Infused Over: 4 mins; hb Site: left antecubital; 08:02 Follow up: Response: No adverse reaction; Pain is decreased hb 07:36 Drug: Ondansetron IVP 4 mg IVP once; over 2 minutes Route: IVP; Site: left antecubital; hb 07:46 Follow up: Response: No adverse reaction hb 08:26 CANCELLED (Physician Discretion): Heparin (UT-Bolus No thrombolytic) - [id number] cp3 units/kg IVP once; Max 5000 units 08:52 Drug: Heparin ([place] Drip) 12 units/kg/[place] - ([place] [address] units, D5W IV 500 ml) IV at hb calculated rate Per protocol; Max initial rate 1000 units/hr {Co-Signature: aa5 (Etta Weiss RN).} Route: IV; Rate: calculated rate; Site: left antecubital; 09:39 CANCELLED (Duplicate Order): [id number] mg PO once cp3 09:44 Drug: Heparin (UT-Bolus No thrombolytic) - HEParin IVP 60 units/kg IVP once; Max 5000 hb units {Co-Signature: aa5 (Etta Weiss RN).} Route: IVP; Site: left antecubital; 10:15 Follow up: Response: No adverse reaction hb Medication: 07:16 VIS not applicable for this client. hb Outcome: 09:41 Decision to Hospitalize by Provider. cp3 20:33 Admitted to ICU accompanied by nurse, via wheelchair, room 6, on monitor, with chart, me1 Report called to DAVON Mckeon 20:33 Condition: stable 20:33 Instructed on the need for admit, 20:34 Patient left the ED. jb4 Signatures: Dispatcher [employer] Radha Singh MD MD cp3 Heide Wilks Donovan ds4 Cindy Ortiz, DAVON RN Elvin Drake RN RN jb4 Zonia Ngo RN RN me1 Libertad Arevalo mg5 Etta Weiss RN aa5 Corrections: (The following items were deleted from the chart) 07:42 07:25 Inserted saline lock: 22 gauge in left antecubital area, using aseptic technique. hb ,using aseptic technique. by Frank Cleveland hb 08:03 07:16 [facility] ED Fall Risk Assessment (Adult) Score/Fall Risk Level 0 - 2 = Low Risk hb Oriented to surroundings, Maintained a safe environment, Educated pt \T\ family on fall prevention, incl call for assistance when getting out of bed, hb 08:05 07:12 Chief complaint: Substernal chest pain that radiates to back x 2 says. Hx of UT + hb stent plvcement. hb 08:21 08:08 Pain: hb hb 09:44 09:25 BP 103 / 16; Pulse 61bpm; Resp 15bpm; Pulse Ox 96% RA; hb hb 10:21 09:25 BP 103 / 61; Pulse 16bpm; Resp 15bpm; Pulse Ox 96% RA; hb hb
[2024-01-28] MEDS ORDERED: HEPARIN 5000 UNIT/ML 1 ML VIAL ONE (09:45)
--- NOTE | 2024-01-28 16:19 | CON ---
Date of Consultation: 01/28/2024 Reason For Consultation: Chest pain and elevated troponin. History Of Present Illness: A 68-year-old male, history of coronary artery disease, status post card iac stents in the past, presented to the emergency room with chest pain, left sided, radiates to the left shoulder and neck. Denies having shortness of breath, nausea, vomiting, or diarrhea. Chest fred n has been going on for a few days and is getting worse. He has not had cardiac followup in the past 4 years since the chemical dependency professional retired. Past Medical History: Coronary artery disease. Medications: Refer reconciliation sheet for detailed list. Allergies: NO KNOWN DRUG ALLERGIES. Family History: No premature coronary artery disease or cancer. Social History: Does not smoke or drink. Does not abuse any drugs. Review of Systems: All systems reviewed are negative except those mentioned in HPI. Physical Examination: Vital Signs: Reviewed. Head and Neck: Pupils are equal, reactive to light. Intact eye movements. No JVD. No cervical lym phadenopathy. Neck supple. Thyroid is not enlarged. Lungs: Clear to auscultation bilaterally. No rhonchi, rales, or crackles. No accessory muscle use. Heart: Regular rate and rhythm. No extra sounds. Abdomen: Soft, nontender. Bowel sounds positive. No organomegaly. No masses or hernia. No rigidi ty or rebound. Extremities: No edema, clubbing, cyanosis. Intact pulses. Skin: No rash or nodules. Neurologic: Alert, awake, oriented x3. No focal deficits appreciated. Investigations: BUN 11, creatinine . AST is 249, ALT is 164. Troponin is 1185. NT-proBN P is 253. Hemoglobin 13.9. Assessment/recommendation: 1.Yrd-TJ-ezzthxyhy myocardial infarction. Continue heparin drip. Start him on aspirin, give him 32 5 mg now and then 81 mg daily, keep him NPO past midnight and plan for coronary angiogram tomorrow. 2.Elevated NT-proBNP, probably chronic heart failure. Obtain an echo tomorrow to further evaluate. 3.Elevated liver enzymes. Recommend GI evaluation. The patient will need to be placed on a statin, but first the liver issue needs to be sorted out. Thank you for the consult. /FOREIGN Voice ID: [id number] Report ID: [id number]
[2024-01-28] MEDS ORDERED: MORPHINE 4 MG/ML SYR IV PRN (17:29)
--- NOTE | 2024-01-28 17:43 | P.HP ---
Certification for Inpatient Patient admitted to: Inpatient With expected LOS: >2 Midnights Patient will require the following post-hospital care: None Practitioner: I am a practitioner with admitting privileges, knowledge of patient current condition, hospital course, and medical plan of care. Services: Services provided to patient in accordance with Admission requirements found in Title 42 Section 412.3 of the Code of Federal Regulations <Shaila Laurent - Last Filed: 01/28/24 18:20> Patient History Date of Service: 01/28/24 Reason for admission: Non-STEMI History of Present Illness: Mr. Junior is a 68-year-old male with a past medical history of hypertension, hyperlipidemia, ulcerative colitis, and noncompliance with his medications. He had a heart cath with PCI in 2007. He has not followed up with a assurance senior manager in the last 4 years. He presents to the emergency department today with chest pain ongoing for a couple of days, with worsening over this morning,with radiation to both shoulders and his back. He denies any nausea, vomiting, shortness of breath, or diaphoresis. In the emergency department he was noted to have an elevated troponin, and elevated BNP, and elevated liver enzymes. Dr. Gomez saw Mr. Junior in the emergency department, and plan for left heart cath tomorrow morning. On admission, Mr. Junior is noted to have a temperature of 102.4. His urine looks infected and will be sent for culture. Rocephin 1 g daily IV piggyback to await cultures. Tylenol 1 g given for fever. Home medications list reviewed: Yes (called HARVE[facility] Fine to get medications) - Past Medical/Surgical History Diabetic: No -: Hypertension -: Hyperlipidemia -: Myocardial infarction with LHC and PCI 2007 -: Ulcerative colitis -: PCI -: Cholecystectomy Psychosocial/ Personal History: Lives at home with his and son. Noncompliant with medications. Smokes and drinks alcohol per son's report. - Family History Family History: Reviewed- Non-Contributory - Social History Smoking Status: Current every day smoker Alcohol use: Yes CD- Drugs: No Caffeine use: Yes Place of Residence: Home <Shaila Laurent - Last Filed: 01/28/24 18:20> Date of Service: 01/29/24 <Waqar Pena - Last Filed: 01/29/24 09:36> Allergies No Known Allergies Allergy (Unverified 03/15/19 13:17) Home Medications: Ascorbic Acid/Ascorbate Sodium [Vitamin C 500 mg Tablet Chew] 500 mg PO DAILY 0 01/29/24 Cholecalciferol (Vitamin D3) [Vitamin D3] 1,000 unit PO DAILY 01/29/24 Losartan Potassium 50 mg PO DAILY 01/29/24 Mesalamine 1.2 gm PO Q12HR 01/29/24 Rosuvastatin [Crestor] 5 mg PO DAILY 01/29/24 Review of Systems 10-point ROS is otherwise unremarkable General: Fever, As per HPI Cardiovascular: As per HPI <Shaila Laurent - Last Filed: 01/28/24 18:20> Physical Examination - Physical Exam General: Alert, In no apparent distress, Oriented x3 HEENT: Atraumatic, Normocephalic Neck: 2+ carotid pulse no bruit Respiratory: Normal air movement Cardiovascular: No edema, Regular rate/rhythm Capillary refill: <2 Seconds Gastrointestinal: Soft and benign Musculoskeletal: No clubbing, No swelling Integumentary: No rashes Neurological: Normal speech, Normal tone Lymphatics: No axilla or inguinal lymphadenopathy External genitalia: Deferred Rectal: Deferred - Studies Laboratory Data (last 24 hrs) 01/28/24 01/28/24 01/28/24 15:51 07:37 07:37 WBC 9.30 Hgb 13.9 Hct 40.6 Plt Count 260 PT 11.6 INR 1.06 APTT 72.0 H Sodium Potassium BUN Creatinine Glucose Magnesium Total Bilirubin AST ALT Alkaline Phosphatase Lipase 01/28/24 07:37 WBC Hgb Hct Plt Count PT INR APTT Sodium 134 L Potassium 3.7 BUN 11 Creatinine 0.83 Glucose 117 H Magnesium 1.9 Total Bilirubin 0.7 AST 249 H ALT 164 H Alkaline Phosphatase 118 H Lipase 26 <Shaila Laurent - Last Filed: 01/28/24 18:20> - Studies Laboratory Data (last 24 hrs) 01/28/24 15:51 APTT 72.0 H <Waqar Pena - Last Filed: 01/29/24 09:36> Assessment and Plan - Plan Nonstemi: Trend troponins, 1st 1185.6. Aspirin 81ng po daily Heparin drip per protocol Consult Dr. Gomez - he states he will take him for [facility] tomorrow AHA diet NPO post MN Hypertension: Losartan 50mg po daily rx per Babatunde GABRIEL Pt currently with some relative hypotension, will hold BP meds until directed by Dr. Gomez HLD: Dr. Gomez would like him to see GI prior to Statin use secondary to elevated transaminases Babatunde GABRIEL states pt has a RX for Rosuvastatin 5mg po daily, unknown if pt is taking as he is noncompliant Ulcerative Colitis: Pt takes Mesalamine Sees GI Elevated BNP r/o Congestive heart failure: Echo I&O Daily weight chest xray in ED "IMPRESSION: Bilateral central interstitial prominence may relate to central congestion or early edema." Fever: Michael's vs viral/bacterial cause Blood cultures urine culture CPK Lactate Rocephin 1 gm IVPB daily Tylenol 1 gm po now Continue to trend GI prophylaxis: carafate/protonix DVT prophylaxis: on heparin, asa, SCDs Code status: full - Advance Directives Does patient have a Living Will: No Does patient have a Durable POA for Healthcare: No <Shaila Laurent - Last Filed: 01/28/24 18:20>
[2024-01-28] MEDS: ACETAMINOPHEN 500 MG TAB PO ONE ×2 (17:51→23:26)
[2024-01-28] MEDS ORDERED: HEPARIN/D5W 25,000 UNIT/500 ML BAG IV SCH (18:00)
[2024-01-28] MEDS ORDERED: CEFTRIAXONE 1000 MG/VIAL ONE (18:00)
[2024-01-28] MEDS ORDERED: ACETAMINOPHEN 500 MG TAB ONE ×2 (18:00→23:25)
[2024-01-28 18:47] LABS: Specific Gravity 1.015 (1.005-1.030); Sqamous Epithelial <5 /HPF (None Seen); Urine Bacteria None Seen /HPF (<20); Urine Bilirubin NEGATIVE (Negative); Urine Blood 1+ (Negative); Urine Clarity Clear (Clear); Urine Color Light-Yellow (Yellow); Urine Culture Reflex Order NOT NEEDED; Urine Glucose NEGATIVE (Negative); Urine Ketones NEGATIVE (Negative); Urine Microscopic Reflex YN ORDER UMIC; Urine Mucus Slight /HPF (None Seen); Urine Nitrite NEGATIVE (Negative); Urine Protein TRACE (Negative); Urine Urobilinogen Normal (Normal); Urine WBC <5 /HPF (<5)
[2024-01-28] MEDS: CEFTRIAXONE 1,000 MG in NA CHLORIDE 0.9% 50 ML IVPB ONE (19:13)
[2024-01-28 21:22] VITALS: BMI 22.7
[2024-01-28] MEDS ORDERED: HYDROCORTISONE SUC 100 MG INJ ONE (23:44)
[2024-01-28] MEDS: HYDROCORTISONE SUC 100 MG INJ IV ONE (23:45)
[2024-01-29] MEDS ORDERED: NA CHLORIDE 0.9% 1,000 ML ONE (04:41)
[2024-01-29 04:55] LABS: Absolute Lymphocytes (CBC) 0.8 K/uL (0.7-4.9); Absolute Monocytes 0.2 K/uL (0.1-1.3); Basophils % 0.4 % (0-1.3); Eosinophils % 0.2 % (0-4.4); Hematocrit 39.4 % (39.6-49.0); Hemoglobin 13.5 g/dL (13.6-17.9); Lymphocytes % 11.1 % (15.3-44.8); MCH 31.4 pg (27.0-35.0); MCHC 34.2 g/dL (32.0-36.0); MCV 91.8 fL (80-100); MPV 7.9 fL (7.6-11.3); Monocytes % 2.7 % (3.3-12.3); Neutrophils % 85.6 % (41.7-73.7); Nucleated Red Blood Cells % 0.1 % (0-0); Platelets 259 thou/uL (152-406); RBC Red Blood Cell Count 4.29 M/uL (4.33-5.43); Red Cell Distribution Width 14.1 % (12.1-15.2)
[2024-01-29 05:09] LABS: PT Prothrombin Time 11.7 SECONDS (9.5-12.5); PTT, Activated Partial Thromb 62.9 SECONDS (24.3-36.9); Protime INR 1.07
[2024-01-29 05:21] LABS: Albumin 3.2 g/dL (3.4-5.0); Albumin/Globulin Ratio 0.9 (1.1-1.8); Anion Gap 10.9 mEq/L (5.0-15.0); Bilirubin Total 0.4 mg/dL (0.2-1.0); Globulin 3.7 g/dL (2.3-3.5); Magnesium 2.2 mg/dL (1.6-2.4); Potassium 3.9 mEq/L (3.5-5.1); Protein, Total 6.9 g/dL (6.4-8.2)
[2024-01-29 05:23] LABS: Band Neutrophils 16 % (0-1); Differential Total Cells Count 100; Lymphocytes 12 % (15-42); Monocytes 6 % (0-10); Reactive Lymphocytes 4 %; Segmented Neutrophils 62 % (40-80)
[2024-01-29 05:24] LABS: Blood Morphology Comment NOT SEEN (NOT SEEN); Platelet Estimate ADEQ
[2024-01-29] MEDS ORDERED: NA CHLORIDE 0.9% 250 ML ONE (05:49)
[2024-01-29] MEDS ORDERED: KCL 20 MEQ/100 mL IVPB 0 ML IV ONE (05:50)
[2024-01-29] MEDS: KCL 20 MEQ/100 mL IVPB 20 MEQ/100 ML BAG IV SCH (05:56)
[2024-01-29] MEDS ORDERED: ASPIRIN EC 81 MG TAB PO ONE (08:23)
[2024-01-29] MEDS: CEFTRIAXONE 1,000 MG in NA CHLORIDE 0.9% 50 ML IVPB SCH (08:27)
[2024-01-29] MEDS: ASPIRIN EC 81 MG TAB PO SCH (08:27)
[2024-01-29] MEDS ORDERED: LIDOCAINE 1% 20 ML MDV ONE (08:49)
[2024-01-29] MEDS ORDERED: HEPA 1000U/500MLS 2,000 UNIT/1,000 ML BAG IV ONE (08:49)
[2024-01-29] MEDS ORDERED: VERAPAMIL HCL 10 MG/4 ML VIAL IV ONE (08:49)
[2024-01-29] MEDS ORDERED: ATROPINE SULF 1 MG/10 ML SYR IV ONE (08:50)
[2024-01-29] MEDS ORDERED: TICAGRELOR 90 MG TABLET PO ONE (08:50)
[2024-01-29] MEDS ORDERED: MIDAZOLAM HCL 2 MG/2 ML INJ ONE (08:50)
[2024-01-29] MEDS ORDERED: HEPARIN 5000 UNIT/ML 1 ML VIAL ONE (08:50)
[2024-01-29] MEDS ORDERED: FENTANYL CITR 100 MCG/2 ML ONE (08:50)
[2024-01-29] MEDS ORDERED: HEPARIN 10,000 UNIT/10 ML VIAL IV ONE (08:51)
[2024-01-29] MEDS ORDERED: CLOPIDOGREL 75 MG TABLET ONE (08:51)
[2024-01-29] MEDS ORDERED: ASPIRIN 325 MG TAB ONE (08:51)
[2024-01-29 09:45] VITALS: BP 90/56; TEMP 97.6
--- NOTE | 2024-01-29 12:08 | P.PN ---
Subjective Date of Service: 01/29/24 Chief Complaint: Non-STEMI Subjective: No new changes Review of Systems 10-point ROS is otherwise unremarkable Physical Examination - Vital Signs Temperature: 97.6 F Blood Pressure: 90/56 Pulse: 54 Respirations: 13 Pulse Ox (%): 99 - Physical Exam General: Alert HEENT: Atraumatic Respiratory: Clear to auscultation bilaterally Cardiovascular: No edema, Normal S1 S2 Gastrointestinal: Normal bowel sounds - Studies Laboratory Data (last 24 hrs) 01/28/24 15:51 APTT 72.0 H Assessment And Plan - Current Problems (Diagnosis) (1) NSTEMI (non-ST elevated myocardial infarction) Current Visit: Yes Status: Acute Plan: Patient had a coronary angiogram this morning that shows normal coronaries with patent proximal LAD stent, no blockages to explain troponin leak, i think it is most likely myocarditis secondary to viral illness since he also have elevated liver enzymes. will need repeat echo as outpatient continue ASA 81 mg daily Start Plavix 75 mg daily (2) HTN (hypertension) Current Visit: Yes Status: Acute Plan: patient BP si soft, start on lower dose Losartan on discharge. (3) HLD (hyperlipidemia) Current Visit: Yes Status: Acute Plan: follow up as outpatient to repeat lipid panel and liver function test to consider starting statins.
[2024-01-29 12:40] VITALS: O2SAT 99
--- NOTE | 2024-01-29 14:15 | P.DS ---
Admission Date: 01/28/24 Discharge Date: 01/29/24 Disposition: ROUTINE DISCHARGE Discharge Condition: GOOD Reason for Admission: Non-STEMI Brief History of Present Illness: Mr. Junior is a 68-year-old male with a past medical history of hypertension, hyperlipidemia, ulcerative colitis, and noncompliance with his medications. He had a heart cath with PCI in 2007. He has not followed up with a programmer or analyst in the last 4 years. He presents to the emergency department today with chest pain ongoing for a couple of days, with worsening over this morning,with radiation to both shoulders and his back. He denies any nausea, vomiting, shortness of breath, or diaphoresis. In the emergency department he was noted to have an elevated troponin, and elevated BNP, and elevated liver enzymes. Dr. Gomez saw Mr. Junior in the emergency department, and plan for left heart cath tomorrow morning. On admission, Mr. Junior is noted to have a temperature of 102.4. His urine looks infected and will be sent for culture. Rocephin 1 g linda ly IV piggyback to await cultures. Tylenol 1 g given for fever. Hospital Course: Mr. Junior is a 68-year-old male with a past medical history of hypertension, hyperlipidemia, ulcerative colitis, and noncompliance with his medications who presented with chest pain for 4 days. Of note, pt had a heart cath with PCI in 2007. He has not followed up with a programmer or analyst in the last 4 years. The chest pain worsened and radiated to his shoulders. On admission, lab studies showed elevated troponin, elevated BNP, and elevated liver enzymes. Dr. Gomez saw Mr. Junior in the emergency department, and planned for left heart cath the the next day. The left heart cath showed clean coronary arteries with patent proximal LAD stent, no blockages to explain troponin leak. Of note, pt had a temperature of 102.4. The programmer or analyst suspected myocarditis due to viral infection given fever and elevated LFTs. The programmer or analyst recommended aspirin, plavix and losartan 25mg po daily. We advised pt to follow up with Cardiology in clinic for Echo. He was advised to follow up with PCP within 1 week to check LFTs before resuming statin. Pt was in NAD prior to discharge. Vital Signs/Physical Exam: Temp Pulse Resp BP Pulse Ox 97.6 F 54 13 90/56 L 99 01/29/24 12:09 01/29/24 12:09 01/29/24 12:09 01/29/24 12:09 01/29/24 12:09 Laboratory Data at Discharge: WBC 7.00 thou/uL (4.3-10.9) 01/29/24 04:41 Hgb 13.5 g/dL (13.6-17.9) L 01/29/24 04:41 Hct 39.4 % (39.6-49.0) L 01/29/24 04:41 Plt Count 259 thou/uL (152-406) 01/29/24 04:41 PT 11.7 SECONDS (9.5-12.5) 01/29/24 04:41 INR 1.07 01/29/24 04:41 APTT 53.3 SECONDS (24.3-36.9) H 01/29/24 11:19 Sodium 134 mEq/L (136-145) L 01/29/24 04:41 Potassium 3.9 mEq/L (3.5-5.1) 01/29/24 04:41 BUN 12 mg/dL (7-18) 01/29/24 04:41 Creatinine 0.88 mg/dL (0.70-1.30) 01/29/24 04:41 Glucose 153 mg/dL (74-106) H 01/29/24 04:41 Magnesium 2.2 mg/dL (1.6-2.4) 01/29/24 04:41 Total Bilirubin 0.4 mg/dL (0.2-1.0) 01/29/24 04:41 AST 307 U/L (15-37) H 01/29/24 04:41 ALT 349 U/L (16-61) H 01/29/24 04:41 Alkaline Phosphatase 176 U/L (45-117) H D 01/29/24 04:41 Lipase 26 U/L (13-75) 01/28/24 07:37 Home Medications: Ascorbic Acid/Ascorbate Sodium [Vitamin C 500 mg Tablet Chew] 500 mg PO DAILY 01/29/24 Aspirin [Aspirin EC 81 MG] 81 mg PO DAILY 90 Days #90 tab 01/29/24 Cholecalciferol (Vitamin D3) [Vitamin D3] 1,000 unit PO DAILY 01/29/24 Clopidogrel Bisulfate [Plavix] 75 mg PO DAILY 90 Days #90 tab 01/29/24 Losartan Potassium 25 mg PO DAILY 60 Days #60 tab 01/29/24 Mesalamine 1.2 gm PO Q12HR 01/29/24 Rosuvastatin [Crestor*] 5 mg PO DAILY 01/29/24 New Medications: Aspirin [Aspirin EC 81 MG] 81 mg PO DAILY 90 Days #90 tab Losartan Potassium 25 mg PO DAILY 60 Days #60 tab Clopidogrel Bisulfate [Plavix] 75 mg PO DAILY 90 Days #90 tab Physician Discharge Instructions: Continue ad callum activity. Take plavix, aspirin, losartan 25mg po daily and other home meds. Follow up with PCP in 2 weeks. Follow up with Cardiology in 1 - 2 weeks for Echo. Diet: AHA Activity: Ad callum Followup: Robb Park MD [ACTIVE - CAN ADMIT] - Bebe Rodriguez MD [Primary Care Provider] -
--- NOTE | 2024-01-29 14:25 | EKG ---
Test Date: 2024-01-28 Test Time: 07:14:17 Leaf Fat Scraper: HB MEASUREMENT RESULTS: Intervals: Rate: 62 TN: 180 QRSD: 84 QT: 384 QTc: 389 [place]: P: 77 TN: 180 QRS: 54 T: 39 INTERPRETIVE STATEMENTS: Normal sinus rhythm Normal ECG Compared to ECG 03/18/2019 09:10:51 Sinus bradycardia no longer present Electronically Signed On 01-29-24 14:23:47 CDT by Clovis Gomez
--- NOTE | 2024-01-30 07:01 | ECHO ---
HEIGHT: 5 ft 2 in WEIGHT: 127 lb 0 oz DATE OF STUDY: 01/29/[address]: Shaila Laurent DE ICER-BC 2-DIMENSIONAL: YES M.MODE: YES DOPPLER: YES COLOR FLOW: YES TDS: PORTABLE: YES DEFINITY: BUBBLE STUDY: DIAGNOSIS: CONGESTIVE HEART FAILURE CARDIAC HISTORY: CATHERIZATION: SURGERY: PROSTHETIC VALVE: PACEMAKER: MEASUREMENTS (cm) DIASTOLIC (NORMALS) SYSTOLIC (NORMALS) IVSd 0.8 (0.6-1.2) LA Diam 3.2 (1.9-4.0) LVEF 60% LVIDd 4.3 (3.5-5.7) LVIDs 2.9 (2.0-3.5) %FS 32% LVPWd 0.8 (0.6-1.2) Ao Diam 2.6 (2.0-3.7) 2 DIMENSIONAL ASSESSMENT: RIGHT ATRIUM: NORMAL LEFT ATRIUM: NORMAL RIGHT VENTRICLE: NORMAL LEFT VENTRICLE: NORMAL TRICUSPID VALVE: MILD TRICUSPID REGURGITATION MITRAL VALVE: NORMAL PULMONIC VALVE: MILD PULMONIC INSUFFICIENCY AORTIC VALVE: MILD AORTIC INSUFFICIENCY PERICARDIAL EFFUSION: NONE AORTIC ROOT: NORMAL LEFT VENTRICULAR WALL MOTION: NORMAL DOPPLER/COLOR FLOW: SEE BELOW COMMENTS: 1. NORMAL LEFT VENTRICULAR EJECTION FRACTION 55-60% 2. NORMAL WALL MOTION 3. NORMAL DIASTOLIC FUNCTION 4. MILD TRICUSPID REGURGITATION, AORTIC INSUFFICIENCY, PULMONIC INSUFFICIENCY TECHNOLOGIST: MARY KATE MOSLEY
== END 2024-01-29 14:39 | disposition home or self-care (01) | DRG 281 ==
LOC: ER 07:11 → ERHOLD 17:41 → 3RD-ICU 19:55
PROVIDERS: ADMIT Hospitalist; ATTEND Hospitalist
PROC: 4A023N7 Measurement of Cardiac Sampling and Pressure, Left Heart, Percutaneous Approach (ICD-10-PCS; principal; 2024-01-29)
PROC: B2111ZZ Fluoroscopy of Multiple Coronary Arteries using Low Osmolar Contrast (ICD-10-PCS; 2024-01-29)
DX: I21.4 Non-ST elevation (NSTEMI) myocardial infarction (principal); K51.90 Ulcerative colitis, unspecified, without complications; I10 Essential (primary) hypertension; E78.5 Hyperlipidemia, unspecified; I25.10 Atherosclerotic heart disease of native coronary artery without angina pectoris; F17.200 Nicotine dependence, unspecified, uncomplicated; R74.01 Elevation of levels of liver transaminase levels; Z95.5 Presence of coronary angioplasty implant and graft; Z90.49 Acquired absence of other specified parts of digestive tract; Z79.82 Long term (current) use of aspirin; Z79.02 Long term (current) use of antithrombotics/antiplatelets; Z91.148 Patient's other noncompliance with medication regimen for other reason; Z79.899 Other long term (current) drug therapy
CPT/HCPCS: 36415; 71045; 76937; 80048; 80053; 80076; 81001; 82550; 83605; 83690; 83735; 83880; 84484; 85025; 85610; 85730; 87040; 93005; 93306; 93458; 96374; 96375; 99152; 99153; 99285; C1893; J0461; J0696; J1644; J1720; J2001; J2250; J2405; J3010; J3480; J7030; J7050; Q9966